=== PATIENT | female | born 1955 | race Hispanic/Latino ===

== ENCOUNTER → 2024-12-23 | Outpatient (REF) | payer OTHER ==
[~2024-12-23] MED LIST: ASPIRIN81 MG PO; ISOSORBIDE DINI20 MG PO; METOPROLOL SUCC50 MG PO; [UNRECOGNIZED DRUG - OTHER] PO
[2024-12-23 14:00] LABS: BASOPHILS % 0.6 % (0.0-1.0); EOSINOPHILS % 1.8 % (0.0-6.0); LYMPHOCYTES % 30.0 % (18.0-39.1); MONOCYTES % 9.0 % (4.4-11.3); NEUTROPHILS % 58.4 % (38.7-80.0); RED CELL DISTRIBUTION WIDTH 14.0 % (11.7-14.4)
== END ==
LOC: RAD 08:00 → EDSTATUS 12-26 14:00
PROVIDERS: ATTEND Internal Medicine Gastroenterology
DX: Z01.818 Encounter for other preprocedural examination (principal); Z12.11 Encounter for screening for malignant neoplasm of colon; K21.9 Gastro-esophageal reflux disease without esophagitis
CPT/HCPCS: 36415; 85025; 93005